=== PATIENT | female | born 1960 | race Caucasian/White ===

== ENCOUNTER 2019-11-09 17:25 | Inpatient (IN) | payer OTHER ==
[~2019-11-09] VITALS: Ht 152.4 cm; Wt 64.4 kg
--- NOTE | 2019-11-09 17:25 | NUR ---
Patient BIBA ALS, transferred to bed 10. RN evaluating patient at bedside.
--- NOTE | 2019-11-09 17:32 | NUR ---
Dr. Carballo is evaluating the patient at bedside.
[2019-11-09] MEDS ORDERED: NACL 0.9% 500 ML IV SCH (17:34)
[2019-11-09 17:35] VITALS: BP 108/69
--- NOTE | 2019-11-09 17:37 | NUR ---
58 Y/O F BIBA FROM [facility]IVATE RESIDENCE. PER EMS, "DAUGHTERS FOUND PT ON GROUND". FALL UNWITNESSED. PER EMS PT WAS ON HOSPICE, BUT NO PAPERWORK PROVIDED TO THEM, NOR DNR. PER EMS DAUGHTERS POOR HISTORIANS. 72 BS. PT ALTERED. HX CERVICAL CA. SIDE RAIL X1.
[2019-11-09 18:05] LABS: BASOPHILS % (AUTO) 0.4 % (0.0-2.0); EOSINOPHILS # (AUTO) 0.1 K/uL (0-0.4); EOSINOPHILS % (AUTO) 0.7 % (0.0-4.0); HEMATOCRIT 22.6 % (36-48); HEMOGLOBIN 7.3 g/dL (12.0-16.0); LYMPHOCYTES # (AUTO) 0.6 K/uL (2.5-16.5); LYMPHOCYTES % (AUTO) 5.9 % (20.5-51.1); MEAN CORPUSCULAR HEMOGLOBIN 26 pg (27-31); MEAN CORPUSCULAR HGB CONC 32 g/dL (33-37); MEAN CORPUSCULAR VOLUME 80.9 fL (80-94); MONOCYTES # (AUTO) 0.2 K/uL (0.8-1.0); MONOCYTES % (AUTO) 2.5 % (1.7-9.3); NEUTROPHILS # (AUTO) 8.9 K/uL (1.8-7.7); NEUTROPHILS % (AUTO) 90.5 % (42.2-75.2); PLATELET COUNT (AUTO) 409 K/uL (140-450); RED BLOOD CELL COUNT(AUTO) 2.79 MIL/uL (4.20-5.40); RED CELL DISTRIBUTION WIDTH 17.2 % (11.6-13.7); WHITE BLOOD COUNT (AUTO) 9.9 K/uL (4.8-10.8)
[2019-11-09] MEDS ORDERED: LEVOFLOXACIN 500 MG/D5W PREMIX 100 ML IV ONE (18:25)
[2019-11-09] MEDS ORDERED: PIPERACILLIN/TAZOBACTAM 3.375 GM in DEXTROSE 5% 50 ML IV ONE (18:25)
[2019-11-09 18:30] LABS: ALBUMIN 1.7 g/dL (3.4-5.0); ANION GAP 20.6 (8-16); CARBON DIOXIDE 13.5 mmol/L (21-32); POTASSIUM 5.1 mmol/L (3.5-5.1); TOTAL BILIRUBIN 0.2 mg/dL (0.0-1.0)
[2019-11-09] MEDS ORDERED: PIPERACILLIN/TAZOBACTAM 3.375 GM VIAL IV ONE (18:30)
[2019-11-09 18:39] LABS: APPEARANCE,URINE BLOODY (CLEAR); BILIRUBIN,URINE 1+ (NEGATIVE); BLOOD, URINE 3+ (NEGATIVE); COLOR,URINE RED (YELLOW); LEUKOCYTE ESTERASE ,URINE 2+ (NEGATIVE); NITRITE, URINE POSITIVE (NEGATIVE); PH,URINE 6.5 (5.0-9.0); UGLUCOSE NEGATIVE (NEGATIVE)
[2019-11-09 18:41] LABS: ACETAMINOPHEN < 0.5 ug/ml (10-30); CREATININE 5.3 mg/dL (0.6-1.3); SALICYLATE < 2.8 mg/dL (2.8-20.0)
[2019-11-09 18:44] LABS: BARBITURATE, URINE NEG. ng/ml (NEG <=200); BENZODIAZEPINE, URINE NEG. ng/mL (NEG <=200); CANNABINOID, URINE NEG. ng/mL (NEG <=50); COCAINE, URINE NEG. ng/mL (NEG <=300); OPIATE, URINE POS. ng/mL (NEG <=2000); PHENCYCLIDINE SCREEN,URINE NEG. ng/mL (NEG <=25)
[2019-11-09 18:48] LABS: PROTHROMBIN TIME 10.5 secs (10.8-13.4)
[2019-11-09 18:53] LABS: RBC,URINE >100 /HPF (0-5); WBC,URINE 20-60 /HPF (0-5)
[2019-11-09] MEDS ORDERED: POTA8CAP4 PO (18:54)
[2019-11-09] MEDS ORDERED: MAGN400S60 PO (18:54)
[2019-11-09] MEDS ORDERED: ONDA4TAB PO (18:54)
[2019-11-09] MEDS ORDERED: BISA-188 PO (18:54)
[2019-11-09] MEDS ORDERED: DOL10 PO (18:54)
[2019-11-09] MEDS ORDERED: CEPH250C16 PO (18:54)
[2019-11-09] MEDS ORDERED: FURO-572 PO (18:54)
[2019-11-09] MEDS ORDERED: [UNRECOGNIZED DRUG - CODE] PO (18:54)
[2019-11-09] MEDS ORDERED: LORA2SOL69 PO (18:54)
[2019-11-09] MEDS ORDERED: ACET-787 PO (18:54)
[2019-11-09] MEDS ORDERED: ENOXAPARIN 60 MG/0.6 ML SYR SUBQ ONE ×2 (18:55→20:01)
[2019-11-09] MEDS ORDERED: NACL 0.9% 1,000 ML IV SCH (19:22)
[2019-11-09] MEDS ORDERED: ACETAMINOPHEN 325 MG TAB PO PRN (19:25)
[2019-11-09] MEDS ORDERED: ONDANSETRON 4 MG/2 ML VIAL IVP PRN (19:25)
[2019-11-09] MEDS ORDERED: HYDROcodone/APAP 7.5/325 MG 1 TAB PO PRN (19:25)
[2019-11-09] MEDS ORDERED: MECLIZINE 25 MG TAB PO PRN (19:25)
--- NOTE | 2019-11-09 19:28 | NUR ---
REPORT GIVEN TO EMMA JONES FOR CONTINUITY OF CARE
--- NOTE | 2019-11-09 19:45 | NUR ---
PATIENT AO2, BREATHING EVEN AND UNLABORED.
[2019-11-09 19:58] LABS: FREE T4 (FREE THYROXINE) 0.92 ng/dL (0.76-1.46); MAGNESIUM 1.9 mg/dL (1.8-2.4); PHOSPHORUS 5.7 mg/dL (2.5-4.9); THYROID STIMULATING HORMONE 2.35 uIU/mL (0.34-3.74)
[2019-11-09 20:25] VITALS: BP 117/63
--- NOTE | 2019-11-09 20:25 | NUR ---
Patient will be admitted to care of DR HUDSON. Admited to TELE. Will go to room 121A. Belongings list completed. Report to JACQUELIN JONES.
--- NOTE | 2019-11-09 20:25 | NUR ---
ADMITTED A 58 F FROM ER CAME BY SHAREE DUE TO ALOC. AWAKE, ALERT ORIENTED X2. ABLE TO TEL NAME AND BIRTHDAY. BUT WITH ABNORMAL LABS. ON TELE MONITOR. BEDREST. VITAL SIGNS STABLE. O2 SAT ON RA 100%. INITIAL SKIN ASSESSMENT DONE. WITH RT LOWER LEG OPEN WOUND, BOTH LEGS WITH NON PITTING EDEMA, SKIN DISCOLORATION. IV ACCESS ON THE LT EXTERNAL JUGULAR G# 20. CLEAR AND PATENT BED ON LOW POSITION. FREQ ROUNDS NEEDED .SIDE RAILS UP X2. CALL LIGHT WITHIN REACH .BED ALARM ON. WILL CONTINUE TO MONITOR.
[2019-11-09] MEDS ORDERED: HYDROmorphone 1 MG/ML AMP IVP PRN (21:40)
[2019-11-09] MEDS ORDERED: BISACODYL 5 MG TABEC PO PRN (21:40)
[2019-11-09] MEDS ORDERED: HYDROcodone/APAP 10/325 MG 1 TAB TAB PO PRN (21:40)
[2019-11-09] MEDS ORDERED: cefTRIAXone 1,000 MG VIAL ONE (22:07)
[2019-11-09] MEDS: DOCUSATE SODIUM 100 MG GELCAP PO SCH (22:12)
--- NOTE | 2019-11-09 22:35 | NUR ---
US CAROTID MUSA DONE AT BEDSIDE. WILL FOLLOW UP RESULT.
--- NOTE | 2019-11-09 22:40 | NUR ---
US TECH SAID US VENOUS AND ARTERIAL BILATERAL WILL BE DONE IN AM.
--- NOTE | 2019-11-09 22:40 | NUR ---
CALLED DR. DIMAS FOR UNABLE TO GET CONSENT FOR BLOOD TRANSFUSION. NO CONTACT NUMBER FOR ANY FAMILY AND PT IS ALTERED. HE SAID OK NOT TO GIVE THE BLOOD TONIGHT WITH HGB 7.3 WILL FOLLOW UP NEXT LABS .
[2019-11-09] MEDS ORDERED: SODIUM BICARBONATE 8.4% 50 MEQ in DEXTROSE 5% 1,000 ML IV ONE (23:00)
[2019-11-10] VITALS: BP 112/59
[2019-11-10] MEDS ORDERED: LORAZEPAM 1 MG PO SCH
--- NOTE | 2019-11-10 | NUR ---
MADE ROUNDS . PT ASLEEP. NO S/S OF ANY DISCOMFORT NOTED.
[2019-11-10] MEDS ORDERED: SODIUM BICARBONATE 8.4% 50 MEQ/50 ML VIAL ONE (01:17)
--- NOTE | 2019-11-10 03:10 | NUR ---
DR. DIMAS MADE AWARE ABOUT TROPONIN 0.268/ NO NEW ORDER MADE.
[2019-11-10 04:00] VITALS: BP 94/55
[2019-11-10] MEDS: LORazepam 0.5 MG TAB PO SCH ×3 (04:00→08:00)
[2019-11-10] MEDS ORDERED: METHADONE 10 MG TAB PO SCH ×2 (05:00)
[2019-11-10 06:21] LABS: BASOPHILS % (AUTO) 0.3 % (0.0-2.0); EOSINOPHILS # (AUTO) 0.1 K/uL (0-0.4); EOSINOPHILS % (AUTO) 1.5 % (0.0-4.0); HEMATOCRIT 20.4 % (36-48); LYMPHOCYTES # (AUTO) 0.7 K/uL (2.5-16.5); LYMPHOCYTES % (AUTO) 7.9 % (20.5-51.1); MEAN CORPUSCULAR HEMOGLOBIN 26 pg (27-31); MEAN CORPUSCULAR HGB CONC 32 g/dL (33-37); MONOCYTES # (AUTO) 0.4 K/uL (0.8-1.0); MONOCYTES % (AUTO) 4.5 % (1.7-9.3); NEUTROPHILS # (AUTO) 7.7 K/uL (1.8-7.7); NEUTROPHILS % (AUTO) 85.8 % (42.2-75.2); PLATELET COUNT (AUTO) 318 K/uL (140-450); RED BLOOD CELL COUNT(AUTO) 2.52 MIL/uL (4.20-5.40); RED CELL DISTRIBUTION WIDTH 17.6 % (11.6-13.7)
[2019-11-10 06:36] LABS: ANION GAP 19.7 (8-16); CARBON DIOXIDE 13.1 mmol/L (21-32); POTASSIUM 4.8 mmol/L (3.5-5.1)
[2019-11-10 06:43] LABS: MAGNESIUM 1.8 mg/dL (1.8-2.4); PHOSPHORUS 6.1 mg/dL (2.5-4.9)
--- NOTE | 2019-11-10 06:45 | NUR ---
CRITICAL BLOOD CULTURE GRAM +COCCI AND CHAINS. DR. COYNE MADE AWARE. WILL SEE PT.
[2019-11-10 06:47] LABS: HEMOGLOBIN 6.6 g/dL (12.0-16.0)
[2019-11-10 07:04] LABS: CREATININE 5.2 mg/dL (0.6-1.3)
--- NOTE | 2019-11-10 07:04 | NUR ---
CRITICAL LAB BUN 66 AND CREAT 5.2 AND CALCIUM 7.9 .ENDORSED TO AM NURSE.
--- NOTE | 2019-11-10 07:25 | NUR ---
ENDORSED PT IN STABLE CONDITION TO AM NURSE.
--- NOTE | 2019-11-10 07:30 | NUR ---
RECEIVED BEDSIDE REPORT FROM NIGHT NURSE. PATIENT IS ASLEEP, AROUSABLE BY NAME OR TOUCH. RESPIRATIONS EVEN AND UNLABORED. PER REPORT PATIENT HGB IS AT 6.6, UNABLE TO OBTAIN CONSENT, PATIENT ALOC AND RESIDENT DOCTOR AWARE. PATIENT WITH RIGHT LOWER LEG WITH OPEN WOUND. WOUND EVAL ORDERED. BED IN LOW POSITION, BED ALARM ON. CALL LIGHT WITHIN REACH.
[2019-11-10 08:00] VITALS: BP 94/59
[2019-11-10] MEDS ORDERED: SODIUM FERRIC GLUCONATE 125 MG in NACL 0.9% 100 ML IV ONE (08:00)
--- NOTE | 2019-11-10 08:00 | NUR ---
PATIENT UNABLE TO SIGN CONSENT FOR BLOOD DUE TO ALOC. PATIENT HAS NO FAMILY CONTACT INFORMATION IN CHART NOTED. CONSENT SIGNED BY TWO DOCTORS DR. COYNE AND DR. DIMAS.
--- NOTE | 2019-11-10 08:07 | NUR ---
RESIDENT DOCTORS AT BEDSIDE.
--- NOTE | 2019-11-10 08:59 | NUR ---
PATIENT HAS BEEN SCREENED AND CATEGORIZED HIGH NUTRITION RISK. PATIENT WILL BE SEEN WITHIN 1-2 DAYS OF ADMISSION. 11/10/19-11/11/[address]
[2019-11-10] MEDS: FUROSEMIDE 20 MG TAB PO SCH (09:00)
[2019-11-10] MEDS: MAGNESIUM HYDROXIDE 2400 MG/30 ML UDC PO SCH (09:04)
[2019-11-10] MEDS: ACETAMINOPHEN 325 MG TAB PO SCH ×2 (09:04→12:00)
[2019-11-10] MEDS ORDERED: VANCOMYCIN PER PHARMACY MC PRN (09:10)
--- NOTE | 2019-11-10 09:40 | NUR ---
BLOOD TRANSFUSION STARTED ORDERED FOR LOW HEMOGLOBIN 6.6. WILL CONTINUE TO MONITOR.
[2019-11-10 10:04] LABS: CHOL/HDL RATIO 3.2 (1-4.5)
--- NOTE | 2019-11-10 10:30 | NUR ---
NOTIFIED DR. COYNE IN REGARDS TO PATIENT'S ORDER FOR METHADONE, PATIENT UNABLE TO CONFIRM THE USE FOR IT AND PT UNABLE TO PROVIDE CONTACT INFORMATION OF HER DAUGHTER. DR. COYNE MADE AWARE THAT PHARMACIST WILL HAVE TO CHANGE THE TIME FOR THE IV FERLICIT. WILL NOTIFY PHARMACY.
--- NOTE | 2019-11-10 10:37 | NUR ---
WOUND NURSE AT BEDSIDE.
--- NOTE | 2019-11-10 10:45 | NUR ---
WOUND CARE EVALUATION NOTE: REASON FOR EVALUATION: LOW EVA SCALE AND LEFT LEG WOUND SKIN ASSESSMENT DONE WITH THIS 58 Y/O FEMALE PT ADMITTED TO [facility] WITH INITIAL DX SYNCOPE. PAST MEDICAL HX INCLUDES CERVICAL CA ON HOSPICE. ALL ABOVE INFORMATION OBTAINED FROM ADMISSION H&P. PT IS AT BLOOD TRANSFUSION, AROUSABLE BUT DOES NOT SPEAK. SKIN IS WARM AND DRY, BLE NO HAIR GROWTH, NO EDEMA. DORSAL PEDAL PULSES PRESENT AND NORMAL. CAPILLARY REFILLED < 2 SEC. PLAN OF CARE DISCUSSED WITH PRIMARY RN. INTEGUMENTARY: -RIGHT LOWER LATERAL LEG VASCULAR ULCER, 4X2.5X0.1CM, WOUND BED 100% PALE WHITE, SMALL AMOUNT SEROUS DRAINAGE, NO ODOR, WOUND EDGE FLAT, VIOLETTA-WOUND SKIN INTACT WITH HYPERPIGMENTATION FROM KNEE DOWN TO DORSAL FOOT -SACRALCOCCYX AND BILATERAL HEELS BLANCHABLE RECOMMENDATIONS: - CLEANSE LEFT LOWER LEG WITH WOUND CLEANSING SOLUTION AND APPLY HYDROGEL AND COVER WITH DRY DRESSING QD AND PRN IF SOILING -APPLY FORM DRESSING TO SACROCOCCYX AND RIGHT HEEL Q7 DAYS AND PRN IF SOILING PREVENTION -APPLY HEEL PROTECTORS TO BOTH HEELS AT ALL TIMES -OFFLOAD BILATERAL HEELS BY PLACING PILLOWS UNDER CALVES UNLESS OTHERWISE CONTRAINDICATED -PRESSURE REDISTRIBUTION SURFACE THERAPY -TURN AND REPOSITION Q2H, OFFLOAD SACRALCOCCYX BY TURNING RIGHT AND LEFT -CONTINUE TO FOLLOW RD RECOMMENDATIONS ALL ABOVE RECOMMENDATIONS DISCUSSED WITH PRIMARY RN. WILL FOLLOW UP PT Q7-10 DAYS. PLEASE CONTACT WOUND CARE NURSE FOR ANY QUESTION AND CHANGE OF WOUND CONDITION. Addendum: 11/10/19 at 1139 by Terri Valderrama RN (Grace) CLARIFICATION OPEN WOUND TO RIGHT LOWER LATERAL LEG, NOT LEFT
[2019-11-10 12:00] VITALS: BP 97/55
[2019-11-10] MEDS ORDERED: FUROSEMIDE 20 MG TAB PO SCH (12:00)
[2019-11-10] MEDS: NACL 0.9% 1,000 ML IV SCH (12:00)
--- NOTE | 2019-11-10 12:30 | NUR ---
RECEIVED CALL FROM DR. ALVAREZ PATIENT IS POSITIVE FOR DVT TO RIGHT LEG.
--- NOTE | 2019-11-10 12:50 | NUR ---
CLARIFIED WITH DR. COYNE IN REGARDS TO 2ND BAG OF UNIT IS AVAILABLE IN BLOOD BANK, ORDERED TO WAIT FOR CBC TO BE DRAWN FIRST BEFORE INFUSING ANOTHER UNIT OF BLOOD. Addendum: 11/10/19 at 1304 by Malathi Galloway RN IN ADDITION TO NOTES: DR. COYNE ALSO MADE AWARE OF PATIENT'S US RESULT POSITIVE FOR DVT TO RIGHT LEG.
--- NOTE | 2019-11-10 12:51 | NUR ---
BENADRYL AND TYLENOL NOT GIVEN, NO BLOOD TRANSFUSION AT THIS TIME.
--- NOTE | 2019-11-10 13:00 | NUR ---
DR. COYNE ABLE TO CONTACT HAROLDO ARNETT PHONE # [phone].
--- NOTE | 2019-11-10 13:30 | NUR ---
FAMILY AT BEDSIDE. NOTIFIED FAMILY TO SIGN ADMISSION PAPERWORK FOR PATIENT.
--- NOTE | 2019-11-10 14:00 | NUR ---
DR. COYNE AT BEDSIDE WITH FAMILY.
--- NOTE | 2019-11-10 15:00 | NUR ---
DR. COYNE MADE AWARE OF PATIENT'S TROPONIN LEVEL TRENDING DOWN 0.188. NO ORDERS RECEIVED.
[2019-11-10 15:16] LABS: BASOPHILS % (AUTO) 0.2 % (0.0-2.0); EOSINOPHILS # (AUTO) 0.4 K/uL (0-0.4); EOSINOPHILS % (AUTO) 4.7 % (0.0-4.0); HEMATOCRIT 25.3 % (36-48); HEMOGLOBIN 7.9 g/dL (12.0-16.0); LYMPHOCYTES % (AUTO) 12.9 % (20.5-51.1); MEAN CORPUSCULAR HEMOGLOBIN 26 pg (27-31); MEAN CORPUSCULAR HGB CONC 31 g/dL (33-37); MEAN CORPUSCULAR VOLUME 82.8 fL (80-94); MONOCYTES # (AUTO) 0.4 K/uL (0.8-1.0); MONOCYTES % (AUTO) 5.7 % (1.7-9.3); NEUTROPHILS # (AUTO) 5.8 K/uL (1.8-7.7); NEUTROPHILS % (AUTO) 76.5 % (42.2-75.2); PLATELET COUNT (AUTO) 308 K/uL (140-450); RED BLOOD CELL COUNT(AUTO) 3.05 MIL/uL (4.20-5.40); RED CELL DISTRIBUTION WIDTH 17.4 % (11.6-13.7); WHITE BLOOD COUNT (AUTO) 7.5 K/uL (4.8-10.8)
--- NOTE | 2019-11-10 15:38 | NUR ---
DC PLANNIN YRS OLD FEMALE PATIENT WAS ADMITTED FROM HOME WITH A DX OF ACIDOSIS, ANEMIA AND RENAL FAILURE. PT HAS A HX ON CERVICAL CANCER ON HOSPICE ([facility]). H/H WAS 7.3/22.6 BLOOD AND URINE CULTURE PENDING CT HEAD NO ACUTE PROCESS ECHO PENDING STARTED ON MECLIZINE ,PALL RISK PRECAUTION, STARTED ON IVF AND IV ROCEPHIN CONSULTED WITH CARDIO, SEEN BY SHINGLE INSPECTOR ORDERED US OF KIDNEY. DC PLAN TOGO HOME WHEN STABLE. CM TO FOLLOW. Addendum: 11/12/19 at 1354 by Frannie Townsend CM DC PLANNING SEEN BY DR CERVANTES RECOMMENDED TO CONTINUE CURRENT ABX PENDING FURTHER RESULTS, AT WHICH ABX THERAPY WILL BE REEVALUATED. DC PLAN JAIME LIM THE ORDER TO [facility]. CM TO FOLLOW Addendum: 11/12/19 at 1415 by Frannie Townsend CM DC PLANNING CALLED [facility] [phone] SPOKE WITH HONG RON NOTIFED HIM [facility] NEEDS SNF FOR PT AND POSSIBLE ABX. HONG WILL FAX THE CONTRACTED FACILITY AT [facility] BASED ON PT'S HOME ADDRESS. CALLED PT'S DAUGHTER MELQUIADES AT [phone] LEFT A MESSAGE REGARDING THE CHOICE OF PLACEMENT. CM TO FOLLOW Addendum: 11/12/19 at 1610 by Frannie Townsend CM DC PLANNING RECEIVED A CALL FROM PT'S DAUGHTER MELQUIADES DISCUSSED THE SNF ORDER PER DAUGHTER PT WAS IN [facility] THE ADDRESS [address] [place] [id number] , PHONE NUMBER [phone] CALLED AND SPOKE WITH ISABELL AND FAXED TO [phone] PER ISABELL WILL REVIEW THE CASE AND WILL CALL BACK CM TO FOLLOW.
[2019-11-10 16:00] VITALS: BP 96/56
[2019-11-10] MEDS ORDERED: VANCOMYCIN 1,000 MG in DEXTROSE 5% 250 ML IV SCH (17:00)
--- NOTE | 2019-11-10 17:00 | NUR ---
FAMILY AT BEDSIDE. PATIENT IS ASLEEP, EASILY AROUSABLE BY NAME OR TOUCH. NO S/S OF DISTRESS NOTED.
[2019-11-10] MEDS: SKINTEGRITY HYDROGEL TP SCH (17:49)
--- NOTE | 2019-11-10 19:00 | NUR ---
RECEIVED BEDSIDE REPORT FROM DAY SHIFT NURSE. PATIENT IS SLEEPING AROUSABLE BY TOUCH. RESPIRATION EVEN UNLABORED ON ROOM AIR. NO DISTRESS NOTED. SKIN IS WARM AND DRY. IV PATENT AND INTACT. DAUGHTER AT BEDSIDE. PLAN OF CARE WAS DISCUSSED. ALL SAFETY MEASURES IN PLACE. BED IS AT LOW POSITION. CALL LIGHT WITHIN REACH. WILL CONTINUE TO MONITOR.
--- NOTE | 2019-11-10 19:00 | NUR ---
REPORT GIVEN TO NIGHT NURSE. PATIENT IN STABLE CONDITION.
[2019-11-10 20:00] VITALS: BP 99/54
--- NOTE | 2019-11-10 20:00 | NUR ---
INITIAL ASSESSMENT DONE. RIGHT LOWER LEG WOUND NOTED. BILATERAL EXTREMITY EDEMATOUS NON-PITTING. DAUGHTER AT BEDSIDE. WILL CONTINUE TO MONITOR.
[2019-11-10] MEDS: SODIUM FERRIC GLUCONATE 125 MG in NACL 0.9% 100 ML IV SCH (20:09)
[2019-11-10] MEDS: DOCUSATE SODIUM 100 MG GELCAP PO SCH (20:09)
--- NOTE | 2019-11-10 20:10 | NUR ---
ALL SCHEDULED MEDS WERE GIVEN PER ORDER. NO ASE NOTED. WILL CONTINUE TO MONITOR.
--- NOTE | 2019-11-10 21:40 | NUR ---
IV ROCEPHIN 1GM GIVEN PER ORDER. NO ASE NOTED. WILL CONTINUE TO MONITOR.
--- NOTE | 2019-11-10 22:46 | NUR ---
CHECKED PATIENT. PATIENT SLEEPING RESPIRATION EVEN UNLABORED ON ROOM AIR. NO DISTRESS NOTED. DAUGHTER AT BEDSIDE. WILL CONTINUE TO MONITOR.
[2019-11-11] VITALS: BP 104/62
--- NOTE | 2019-11-11 02:27 | NUR ---
CHECKED PATIENT. PATIENT SLEEPING RESPIRATION EVEN UNLABORED ON ROOM AIR. NO DISTRESS NOTED. WILL CONTINUE TO MONITOR.
[2019-11-11 04:00] VITALS: BP 99/47
--- NOTE | 2019-11-11 04:05 | NUR ---
VITALS WERE TAKEN. PATIENT IS IN STABLE CONDITION. NO DISTRESS NOTED. WILL CONTINUE TO MONITOR
[2019-11-11 06:36] LABS: ANION GAP 17.8 (8-16); MAGNESIUM 1.6 mg/dL (1.8-2.4); PHOSPHORUS 4.7 mg/dL (2.5-4.9); POTASSIUM 4.8 mmol/L (3.5-5.1)
--- NOTE | 2019-11-11 07:16 | NUR ---
ENDORSED PATIENT TO DAY SHIFT NURSE. PATIENT IS IN STABLE CONDITION.
--- NOTE | 2019-11-11 07:16 | NUR ---
RECEIVED REPORT FROM NIGHT NURSE. PATIENT IS IN STABLE CONDITION. DAUGHTER AT BEDSIDE. IV INTACT AND PATENT TO LEFT EJ AND RIGHT AC. BED IN LOW POSITION. SAFETY MEASURES IN PLACE. CALL LIGHT WITHIN REACH.
--- NOTE | 2019-11-11 07:55 | NUR ---
PAGED DR. MARROQUIN IN REGARDS TO US RENAL/BLADDER RESULTS.
[2019-11-11 08:00] VITALS: BP 102/63
--- NOTE | 2019-11-11 08:00 | NUR ---
NOTIFIED DR. MARROQUIN OF THE US RENAL/BLADDER RESULTS. PER . REFER TO RESIDENT DOCTOR IN REGARDS TO NEPHROSTOMY TUBE PLACEMENT TO RIGHT SIDE KIDNEY AND REFER TO UROLOGY. WILL NOTIFY DR. COYNE.
[2019-11-11 08:12] LABS: BASOPHILS % (AUTO) 0.6 % (0.0-2.0); EOSINOPHILS # (AUTO) 0.4 K/uL (0-0.4); EOSINOPHILS % (AUTO) 5.4 % (0.0-4.0); HEMATOCRIT 22.8 % (36-48); HEMOGLOBIN 7.5 g/dL (12.0-16.0); LYMPHOCYTES # (AUTO) 1.3 K/uL (2.5-16.5); LYMPHOCYTES % (AUTO) 15.6 % (20.5-51.1); MEAN CORPUSCULAR HEMOGLOBIN 27 pg (27-31); MEAN CORPUSCULAR HGB CONC 33 g/dL (33-37); MONOCYTES # (AUTO) 0.4 K/uL (0.8-1.0); MONOCYTES % (AUTO) 5.3 % (1.7-9.3); NEUTROPHILS # (AUTO) 6.1 K/uL (1.8-7.7); NEUTROPHILS % (AUTO) 73.1 % (42.2-75.2); PLATELET COUNT (AUTO) 293 K/uL (140-450); RED BLOOD CELL COUNT(AUTO) 2.75 MIL/uL (4.20-5.40); WHITE BLOOD COUNT (AUTO) 8.3 K/uL (4.8-10.8)
--- NOTE | 2019-11-11 08:13 | NUR ---
DR. COYNE MADE AWARE OF DR. MARROQUIN'S RECOMMENDATION.
[2019-11-11] MEDS: MAGNESIUM HYDROXIDE 2400 MG/30 ML UDC PO SCH (08:17)
[2019-11-11] MEDS: DOCUSATE SODIUM 100 MG GELCAP PO SCH ×2 (08:20→20:17)
[2019-11-11] MEDS: FUROSEMIDE 20 MG TAB PO SCH (08:22)
[2019-11-11] MEDS: NACL 0.9% 1,000 ML IV SCH (08:23)
--- NOTE | 2019-11-11 08:45 | NUR ---
AM MEDICATIONS GIVEN GIVEN AND TOLERATED WELL. PATIENT IS AWAKE, ALERT, VERBALLY RESPONSIVE. PATIENT IN BED WITH HOB ELEVATED, EATING BREAKFAST. DAUGHTER AT BEDSIDE. NO S/S OF DISTRESS NOTED. CALL LIGHT WITHIN REACH.
[2019-11-11] MEDS ORDERED: MAG SULF 2000 MG/WATER PREMIX 50 ML IV SCH (09:00)
[2019-11-11 10:06] LABS: FOLIC ACID 14.2 ng/mL (>3.0)
--- NOTE | 2019-11-11 10:45 | NUR ---
PATIENT IS ASLEEP, EASILY AROUSABLE BY NAME OR TOUCH. SKIN WARM AND DRY TO TOUCH. BED IN LOW POSITION. CALL LIGHT WITHIN REACH. NO S/S OF DISTRESS NOTED.
[2019-11-11 12:00] VITALS: BP 104/52
[2019-11-11] MEDS ORDERED: METHADONE 10 MG TAB PO SCH (13:00)
[2019-11-11] MEDS: METHADONE 10MG TAB PO SCH ×2 (13:00→20:18)
--- NOTE | 2019-11-11 13:40 | NUR ---
11/11/19 RD INITIAL ASSESSMENT COMPLETED PLEASE REFER TO NUTRITION ASSESSMENT UNDER CARE ACTIVITY FOR ESTIMATED NUTRITIONAL NEEDS. 1. CONTINUE RENAL DIET TOLERATED 2. RECOMMEND NEPRO BID 3. ENCOURAGED INCREASING PO INTAKE 4. RD TO FOLLOW-UP 2-3 DAYS, HIGH RISK MORGAN DEL CASTILLO, RD
[2019-11-11] MEDS: SKINTEGRITY HYDROGEL TP SCH (14:17)
--- NOTE | 2019-11-11 14:45 | NUR ---
PATIENT IS AWAKE, ALERT, VERBALLY RESPONSIVE. RESTING QUIETLY IN BED. IV INTACT AND PATENT TO LEFT EJ. NEEDS MET AT THIS TIME. CALL LIGHT WITHIN REACH.
[2019-11-11 16:00] VITALS: BP 122/82
--- NOTE | 2019-11-11 16:45 | NUR ---
PATIENT IS AAOX3. SKIN WARM AND DRY TO TOUCH. BED IN LOW POSITION. CALL LIGHT WITHIN REACH. NO S/S OF DISTRESS NOTED.
--- NOTE | 2019-11-11 16:48 | NUR ---
Church Supervisor Note: Per patient's daughter Whit Steele, she thinks she would like patient to be discharge to a snf with [facility]. She reported she does not have the phone number of [facility] at this time but will call me tomorrow morning and provide me with the phone number. She told me she is planning to contact [facility] this afternoon and discuss discharge plan with them.
--- NOTE | 2019-11-11 18:45 | NUR ---
PATIENT IS AWAKE, EATING DINNER. NO S/S OF DISTRESS NOTED. DAUGHTER AT BEDSIDE.
--- NOTE | 2019-11-11 19:10 | NUR ---
REPORT GIVEN TO NIGHT NURSE. PATIENT IN STABLE CONDITION.
--- NOTE | 2019-11-11 19:30 | NUR ---
ASSUMED CARE OF PATIENT, AWAKE, ALERT AND ORIENTED. STABLE CONDITION. DAUGHTER AT BEDSIDE. NO COMPLAINS. STABLE CONDITION. CARE BOARD UPDATED. CALL LIGHT WITHIN REACH.
[2019-11-11] MEDS: SODIUM FERRIC GLUCONATE 125 MG in NACL 0.9% 100 ML IV SCH (19:58)
--- NOTE | 2019-11-11 21:00 | NUR ---
DUE MEDS GIVEN. PLAN OF CARE DISCUSSED WITH PATIENT AND FAMILY MEMBER, VERBALIZED UNDERSTANDING WELL. CALL LIGHT WITHIN REACH. PERICARE DONE. VITAL SIGNS STABLE.
--- NOTE | 2019-11-11 23:00 | NUR ---
SLEEPING WELL. NO COMPLAINS. CALL LIGHT WITHIN REACH.
[2019-11-12 00:57] VITALS: BP 106/60
--- NOTE | 2019-11-12 01:21 | NUR ---
VITAL SIGNS STABLE. AFEBRILE. SLEEPING WELL. CALL LIGHT WITHIN REACH.
--- NOTE | 2019-11-12 03:30 | NUR ---
REPOSITIONED. SLEEPING WELL. CALL LIGHT WITHIN REACH.
[2019-11-12] MEDS: NACL 0.9% 1,000 ML IV SCH (05:11)
[2019-11-12] MEDS: METHADONE 10MG TAB PO SCH ×3 (05:11→20:06)
--- NOTE | 2019-11-12 05:36 | NUR ---
PERICARE DONE. SLEEPING WELL. CALL LIGHT WITHIN REACH. DUE MEDS GIVEN.
[2019-11-12 06:20] LABS: MAGNESIUM 2.3 mg/dL (1.8-2.4)
[2019-11-12 06:26] LABS: CARBON DIOXIDE 15.6 mmol/L (21-32); POTASSIUM 4.6 mmol/L (3.5-5.1)
[2019-11-12 06:48] LABS: CREATININE 4.8 mg/dL (0.6-1.3)
[2019-11-12 07:01] LABS: BASOPHILS % (AUTO) 0.5 % (0.0-2.0); EOSINOPHILS # (AUTO) 0.4 K/uL (0-0.4); EOSINOPHILS % (AUTO) 5.1 % (0.0-4.0); HEMATOCRIT 22.8 % (36-48); HEMOGLOBIN 7.4 g/dL (12.0-16.0); LYMPHOCYTES # (AUTO) 1.7 K/uL (2.5-16.5); LYMPHOCYTES % (AUTO) 19.9 % (20.5-51.1); MEAN CORPUSCULAR HEMOGLOBIN 27 pg (27-31); MEAN CORPUSCULAR HGB CONC 33 g/dL (33-37); MEAN CORPUSCULAR VOLUME 83.6 fL (80-94); MONOCYTES # (AUTO) 0.5 K/uL (0.8-1.0); MONOCYTES % (AUTO) 6.2 % (1.7-9.3); NEUTROPHILS # (AUTO) 5.7 K/uL (1.8-7.7); NEUTROPHILS % (AUTO) 68.3 % (42.2-75.2); PLATELET COUNT (AUTO) 310 K/uL (140-450); RED BLOOD CELL COUNT(AUTO) 2.73 MIL/uL (4.20-5.40); RED CELL DISTRIBUTION WIDTH 17.6 % (11.6-13.7); WHITE BLOOD COUNT (AUTO) 8.3 K/uL (4.8-10.8)
--- NOTE | 2019-11-12 07:13 | NUR ---
ENDORSED CARE AT BEDSIDE WITH LILLI JNOES, PATIENT IN STABLE CONDITION.
--- NOTE | 2019-11-12 07:14 | NUR ---
RECEIVED REPORT FROM CONTOUR PATH TAPE MILL OPERATOR NURSE CHRISTINE FOR CONTINUITY OF CARE. PT IN STABLE CONDITION. RESPIRATIONS EVEN AND UNLABORED. IV INTACT AND PATENT. SAFETY MEASURES IN PLACE. BED IN LOW POSITION. BED ALARM ON. CALL LIGHT AT BEDSIDE. WILL CONTINUE TO MONITOR.
[2019-11-12 08:00] VITALS: BP 97/60
[2019-11-12] MEDS: MAGNESIUM HYDROXIDE 2400 MG/30 ML UDC PO SCH (09:21)
[2019-11-12] MEDS: DOCUSATE SODIUM 100 MG GELCAP PO SCH ×2 (09:21→20:06)
[2019-11-12] MEDS: FUROSEMIDE 20 MG TAB PO SCH (09:21)
--- NOTE | 2019-11-12 09:25 | NUR ---
GAVE ORDERED DUE MEDICATIONS AT THIS TIME. PT TOLERATED WELL.
--- NOTE | 2019-11-12 09:27 | NUR ---
FAMILY REQUESTING FACILITY (SNF OR BOARD AND CARE) CLOSE TO HOME IN [facility]. LEFT MESSAGE WITH MELQUIADES CISNEROS CLOTH BLEACHING RANGE TENDER.
--- NOTE | 2019-11-12 10:46 | NUR ---
COURTROOM DEPUTY AT BEDSIDE UPDATING PT AT THIS TIME. FAMILY (DAUGHTER) AT BEDSIDE. PT IN STABLE CONDITION.
[2019-11-12] MEDS ORDERED: VANCOMYCIN 1,000 MG in DEXTROSE 5% 250 ML IV SCH (11:00)
--- NOTE | 2019-11-12 12:37 | NUR ---
ASSISTED TO RESTROOM FOR MINIMAL URINATION. USED WHEELCHAIR, PT TOLERATED WELL. WILL CONTINUE TO MONITOR.
[2019-11-12] MEDS: SKINTEGRITY HYDROGEL TP SCH (13:30)
--- NOTE | 2019-11-12 13:45 | NUR ---
[facility] AT BED[facility]IDE FOR ASSESSMENT. PT IN STABLE CONDITION. RESPIRATIONS EVEN AND UNLABORED. BED IN LOW POSITION. BED ALARM ON. CALL LIGHT AT BEDSIDE. WILL CONTINUE TO MONITOR.
--- NOTE | 2019-11-12 15:46 | NUR ---
ASSISTED WITH CHANGING AFTER VERY SMALL URINATION. PT TOLERATED WELL. RESPIRATIONS EVEN AND UNLABORED. BED IN LOW POSITION. BED ALARM ON. CALL LIGHT AT BEDSIDE. WILL CONTINUE TO MONITOR.
[2019-11-12 16:00] VITALS: BP 102/74
--- NOTE | 2019-11-12 16:52 | NUR ---
Food Order Expediter Note: Per Rachell from [facility] , they do not have any beds available at this time, she stated they are anticipating having beds available late next week, I called and spoke with patient's daughter Whit Stelee and informed her of what Rachell told me and explained to her other snfs will be contacted. She verbalized understanding and stated she would like patient to remain at a snf for as long as patient can.
--- NOTE | 2019-11-12 17:01 | NUR ---
Billet Straightener Note Per Елена from [facility] , they do not have any beds available today and will not have any beds available tomorrow. Per Chet from [facility] , they do have any beds available today and is not sure if they will have any tomorrow. LIBRARY CONSULTANT and/or CM will continue to contact snfs
--- NOTE | 2019-11-12 18:47 | NUR ---
PT TALKING WITH FAMILY AT BEDSIDE. RESPIRATIONS EVEN AND UNLABORED. BED IN LOW POSITION. BED ALARM ON. CALL LIGHT AT BEDSIDE. WILL CONTINUE TO MONITOR.
--- NOTE | 2019-11-12 19:29 | NUR ---
GAVE REPORT TO MERCERIZER MACHINE OPERATOR NURSE FOR CONTINUITY OF CARE. PT IN STABLE CONDITION.
--- NOTE | 2019-11-12 19:30 | NUR ---
RECEIVED BEDSIDE REPORT FROM DAY RN. PT IS RESTING COMFORTABLY IN BED WITH DAUGHTER AT BEDSIDE.PT IS AAO X3 WITH MOMENTS OF CONFUSION. RESPIRATIONS EVEN AND UNLABORED ON RA. IV INTACT AND PATENT. PT WITH DRESSING ON R LEG DRESSING IS C/D/I. SAFETY MEASURES IN PLACE. BED IN LOW POSITION. BED ALARM ON. CALL LIGHT AT BEDSIDE. WILL CONTINUE TO MONITOR.
[2019-11-12] MEDS: SODIUM FERRIC GLUCONATE 125 MG in NACL 0.9% 100 ML IV SCH (20:05)
--- NOTE | 2019-11-12 20:05 | NUR ---
VSS. ADMINISTERED KHRIS MEDICATIONS PER ORDERS. PT TOLERATED WELL. PT REFUSED COLACE STATES HAD 3 BM TODAY DENIES DIARRHEA. EDUCATED PT NEED TO COLLECT STOOL SHE VERBALIZED UNDERSTANDING. FAMILY IS AT BEDSIDE. CALL LIGHT IS WITHIN REACH.
[2019-11-12] MEDS ORDERED: PIPERACILLIN/TAZOBACTAM 2.25 GM in DEXTROSE 5% 50 ML IV SCH (21:00)
[2019-11-12] MEDS ORDERED: MEROPENEM 1,000 MG in NACL 0.9% 100 ML IV SCH (21:00)
[2019-11-12] MEDS: MEROPENEM 500 MG in NACL 0.9% 50 ML IV SCH (21:09)
--- NOTE | 2019-11-12 22:30 | NUR ---
PATIENT IS SLEEPING COMFORTABLY IN BED. CHEST RISE AND FALL NOTED. NO S/S OF DISTRESS. SAFETY MEASURES ARE IN PLACE. CALL LIGHT IS WITHIN REACH.
[2019-11-13] VITALS: BP 129/68
[2019-11-13] MEDS: NACL 0.9% 1,000 ML IV SCH
--- NOTE | 2019-11-13 | NUR ---
VITAL SIGNS ARE WITHIN NORMAL LIMITS. NO S/S OF DISTRESS. CALL LIGHT IS WITHIN REACH.
--- NOTE | 2019-11-13 02:00 | NUR ---
PATIENT IS SLEEPING COMFORTABLY IN BED. NO S/S OF DISTRESS NOTED. CALL LIGHT IS WITHIN REACH
--- NOTE | 2019-11-13 04:15 | NUR ---
PATIENT IS AWAKE LAYING COMFORTABLY IN BED. ALL NEEDS MET AT THIS TIME. CALL LIGHT IS WITHIN REACH. WILL CONTINUE TO MONITOR.
[2019-11-13] MEDS: METHADONE 10MG TAB PO SCH ×2 (05:19→14:38)
--- NOTE | 2019-11-13 05:19 | NUR ---
KHRIS METHADONE ADMINISTERED PER ORDERS. PT TOLERATED WELL. ALL NEEDS MET AT THIS TIME. CALL LIGHT IS WITHIN REACH.
[2019-11-13 06:24] LABS: BASOPHILS # (AUTO) 0.1 K/uL (0.00-0.22); BASOPHILS % (AUTO) 0.6 % (0.0-2.0); EOSINOPHILS # (AUTO) 0.4 K/uL (0-0.4); EOSINOPHILS % (AUTO) 4.5 % (0.0-4.0); HEMATOCRIT 24.4 % (36-48); HEMOGLOBIN 7.9 g/dL (12.0-16.0); LYMPHOCYTES # (AUTO) 1.1 K/uL (2.5-16.5); LYMPHOCYTES % (AUTO) 12.7 % (20.5-51.1); MEAN CORPUSCULAR HEMOGLOBIN 27 pg (27-31); MEAN CORPUSCULAR HGB CONC 33 g/dL (33-37); MEAN CORPUSCULAR VOLUME 83.2 fL (80-94); MONOCYTES # (AUTO) 0.4 K/uL (0.8-1.0); MONOCYTES % (AUTO) 4.4 % (1.7-9.3); NEUTROPHILS # (AUTO) 6.9 K/uL (1.8-7.7); NEUTROPHILS % (AUTO) 77.8 % (42.2-75.2); PLATELET COUNT (AUTO) 339 K/uL (140-450); RED BLOOD CELL COUNT(AUTO) 2.93 MIL/uL (4.20-5.40); RED CELL DISTRIBUTION WIDTH 17.5 % (11.6-13.7); WHITE BLOOD COUNT (AUTO) 8.9 K/uL (4.8-10.8)
[2019-11-13 06:35] LABS: ANION GAP 16.8 (8-16); CARBON DIOXIDE 16.5 mmol/L (21-32); POTASSIUM 4.3 mmol/L (3.5-5.1)
[2019-11-13 06:42] LABS: CREATININE 4.7 mg/dL (0.6-1.3)
[2019-11-13 06:43] LABS: PHOSPHORUS 4.7 mg/dL (2.5-4.9)
--- NOTE | 2019-11-13 07:38 | NUR ---
GAVE BEDSIDE REPORT TO DAY RN. PT ENDORSED IN STABLE CONDITION.
--- NOTE | 2019-11-13 07:42 | NUR ---
RECEIVED BEDSIDE REPORT FROM FISH PROCESSING SUPERVISOR RN FOR CONTINUITY OF CARE. PT IS AAOX3, RESTING COMFORTABLY IN BED. RESPIRATIONS EVEN AND UNLABORED ON RA. IV INTACT AND PATENT. PT WITH DRESSING ON R LEG, WITH DRESSING DRY AND INTACT. DISCUSSED POC WITH PT AND PT VERBALIZED UNDERSTANDING. SAFETY MEASURES IN PLACE. BED IN LOW POSITION. BED ALARM ON. CALL LIGHT AT BEDSIDE. BOARD UPDATED. WILL MONITOR PT CLOSELY.
[2019-11-13] MEDS: MAGNESIUM HYDROXIDE 2400 MG/30 ML UDC PO SCH (08:08)
[2019-11-13 08:20] VITALS: BP 113/68
[2019-11-13] MEDS: DOCUSATE SODIUM 100 MG GELCAP PO SCH ×2 (08:55→09:00)
[2019-11-13] MEDS: FUROSEMIDE 20 MG TAB PO SCH (08:56)
[2019-11-13] MEDS: MEROPENEM 500 MG in NACL 0.9% 50 ML IV SCH (08:56)
--- NOTE | 2019-11-13 09:36 | NUR ---
ADMINISTERED PT MORNING MEDS. PT TOLERATED WELL. ALL NEEDS MET. WILL CONTINUE TO ROUND FREQUENTLY ON PT. BED IN LOW POSITION, CALL LIGHT WITHIN REACH.
[2019-11-13] MEDS ORDERED: VANC1PDS14 IV (10:08)
[2019-11-13] MEDS ORDERED: INUL1CTB PO (10:08)
[2019-11-13] MEDS ORDERED: MERO500V13 IV (10:08)
--- NOTE | 2019-11-13 10:56 | NUR ---
Conference Center Manager Note: I faxed referral to [facility] [place], fax , phone number . Per Anisa from [facility] [place], they do not have any beds available at this time and they are concern patient will become a manager terminal resident, therefore, they cannot accept patient.
--- NOTE | 2019-11-13 11:12 | NUR ---
PT SLEEPING. ALL NEEDS MET. WILL CONTINUE TO ROUND FREQUENTLY ON PT.
[2019-11-13] MEDS: SKINTEGRITY HYDROGEL TP SCH (13:00)
--- NOTE | 2019-11-13 13:40 | NUR ---
PT SITTING IN BED WATCHING TV. ALL NEEDS MET. WILL CONTINUE TO ROUND ON PT.
--- NOTE | 2019-11-13 13:53 | NUR ---
Drop Wire Hanger Note: Per Ruddy from [facility] , they do not have any female beds available and are not anticipating having any time soon. I faxed inquiry to [facility]. Per Lesley from [facility] , they can accept patient today, however, they need snf auth from [facility]. Vashti is aware patient is on isolation. I called and spoke with Industrial Relations Officer Abrahan from [facility] , Abrahan stated he needs to review physical therapy notes that were faxed to him by Industrial Relations Officer Frannie yesterday. He is aware [facility] is able to accept patient today. Abrahan told me he will call me back and let me know if he can authorize snf placement. I called and spoke with patient's daughter Whit Steele , I informed her of my conversation with Industrial Relations Officer Abrahan from [facility] and is aware [facility] is willing to accept patient if authorized by [facility]. Per Whit, she is in agreement with patient being transferred to any accepting snf and reported patient is able to return home upon discharge if [facility] does not authorize snf placement.
--- NOTE | 2019-11-13 15:08 | NUR ---
Animal Ride Attendant Note: Per Broiler Chef Or Cook Abrahan from [facility] , snf auth for [facility] is [id number]. He stated [facility] can be contacted for transportation, auth is [id number]. Abrahan told me if [facility] is not able to cross [facility] line to call him and let him know. Patients nurse Toshia made aware and will let me know if [facility] cannot cross [facility] line. I called and spoke with Vashti from [facility] , I provided her with snf auth from [facility]. She stated patient may go to room 120A after 7pm today, accepting MD is , RN Toshia made aware.
--- NOTE | 2019-11-13 15:14 | NUR ---
CALLED [employer] AT [phone]. NO ANSWER YET. PHONE CONTINUES TO RING WITH NO ANSWER OR VOICEMAIL INBOX TO LEAVE MESSAGE. WILL TRY AGAIN LATER. MELQUIADES RUG CLIPPER AWARE.
--- NOTE | 2019-11-13 15:39 | NUR ---
PT SLEEPING IN BED. ALL NEEDS MET. WILL CONTINUE TO ROUND FREQUENTLY ON PT.
[2019-11-13 16:00] VITALS: BP 121/67
--- NOTE | 2019-11-13 16:02 | NUR ---
ATTEMPTED TO CALL FOR PT TRANSPORT AGAIN. ONCE AGAIN NO ANSWER. MELQUIADES MADE AWARE.
--- NOTE | 2019-11-13 16:45 | NUR ---
contacted [facility]essa meena, spoke with Susana. eta will be at 7:30 pm [facility]. camille assigned radha springer.
--- NOTE | 2019-11-13 16:47 | NUR ---
Odd Ticket Clerk Note: Per ROBERT Pope, she has been calling [facility] and there are not answering, no answering machine. I called and spoke with Superintendent Automotive Abrahan from [facility] told him [facility] is not answering. He provided me with additional phone number for [facility] , provided ROBERT Pope with phone number. Per ROBERT Pope, she was informed by [facility] they cannot cross county lines. I called and spoke with Superintendent Automotive Abrahan from [facility] once again. He stated [facility] can be contacted and same transportation can be used, [phone], ROBERT Pope made aware. Per ROBERT Pope, [facility] stated patient does not meet transportation criteria even with transportation auth. Per patients daughter Whit Steele , she cannot afford to pay for cost of transportation, I informed advanced practice professional/Trackwalker Whit Tran patients family cannot pay for transportation and [employer] will be contacted and hospital will be billed, ROBERT Pope made aware. I provided Whit Steele with the phone number and address of [facility] she is aware patient will be transferred to [facility] today.
--- NOTE | 2019-11-13 18:27 | NUR ---
CALLED TO GIVE REPORT TO [facility]. PER ACCEPTING NURSE, THEY HAVE NO PAPERWORK FOR ACCEPTING THIS PT. MELQUIADES TRAVEL PHYSICAL THERAPIST MADE AWARE. SHE WILL TALK TO CONTINUOUS IMPROVEMENT CONSULTANT.
--- NOTE | 2019-11-13 18:58 | NUR ---
RECEIVED CALL FROM BILLY ACCEPTING NURSE AT [facility]. PER BILLY, PT ACCEPTED AND GOING TO ROOM 118C.
--- NOTE | 2019-11-13 19:10 | NUR ---
PT DISCHARGED TO [facility] FOR CONTINUITY OF CARE. PT REPORT GIVEN TO BILLY AJ NURSE. PT DISCHARGE PAPERWORK UNABLE TO BE SIGNED BY PT. PT SAID SHE DID NOT HAVE HER GLASSES TO SIGN. IVS LEFT IN FOR CONTINUATION OF ABX THERAPY. ALL PT BELONGINGS SENT IN LARGE BAG. PT HOME MEDS PICKED UP FROM PHARMACY AND PLACED IN LARGE BAG. PT WHEELCHAIR ALSO TAKEN OUT BY [facility]. PT LEFT IN STABLE CONDITION.
== END 2019-11-13 19:10 | DRG 720 ==
LOC: MED 17:25 → MTU 19:22
PROVIDERS: ADMIT General Practice; ATTEND General Practice
PROC: 30233N1 Transfusion of Nonautologous Red Blood Cells into Peripheral Vein, Percutaneous Approach (ICD-10-PCS; principal; 2019-11-10)
DX: A41.81 Sepsis due to Enterococcus (principal); I21.A1 Myocardial infarction type 2; N17.0 Acute kidney failure with tubular necrosis; G93.41 Metabolic encephalopathy; K92.2 Gastrointestinal hemorrhage, unspecified; E87.2 Acidosis; N18.4 Chronic kidney disease, stage 4 (severe); N13.6 Pyonephrosis; I35.1 Nonrheumatic aortic (valve) insufficiency; K59.00 Constipation, unspecified; Z66 Do not resuscitate; B96.20 Unspecified Escherichia coli [E. coli] as the cause of diseases classified elsewhere; Z16.12 Extended spectrum beta lactamase (ESBL) resistance; D63.8 Anemia in other chronic diseases classified elsewhere; E83.39 Other disorders of phosphorus metabolism; Z85.41 Personal history of malignant neoplasm of cervix uteri; Z79.899 Other long term (current) drug therapy
CPT/HCPCS: 36415; 36600; 70450; 71045; 76770; 80048; 80053; 80202; 80305; 81001; 82150; 82272; 82550; 82607; 82728; 82746; 82803; 83036; 83540; 83605; 83690; 83735; 83880; 84100; 84439; 84443; 84484; 85025; 85045; 85610; 85730; 86886; 86900; 86901; 86920; 87040; 87081; 87086; 87186; 93005; 93880; 93925; 93970; 96361; 96365; 96372; 96375; 97110; 97112; 97116; 97161-GP; 97530; 99285; A6248; C1758; G0480; G0482; J0696; J1170; J1650; J1956; J2185; J2405; J2543; J2916; J3370; J3475; J3490; J7030; J7060; P9016; Q0092; Q0163